=== PATIENT | female | born 2000 | race Caucasian/White ===

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

== ENCOUNTER 2019-05-16 22:33 | Emergency (ER) | payer SELFPAY ==
[~2019-05-16] VITALS: Ht 154.9 cm; Wt 54.9 kg
[2019-05-17 01:35] VITALS: BP 109/65
[2019-05-17] MEDS ORDERED: ALBUTEROL SULF 2.5 MG/0.5ML(0.5%) NEB SOLN NEB ONE (02:15)
[2019-05-17] MEDS ORDERED: cefTRIAXone SOD 1,000 MG VL IM ONE (02:15)
[2019-05-17] MEDS ORDERED: IPRATROPIUM BROM 0.5 MG/2.5ML INH SOL NEB ONE (02:15)
[2019-05-17] MEDS ORDERED: LIDOCAINE 1% HCL (LOCAL ANESTH.) INJ 20ML MDV ID ONE (02:15)
== END 2019-05-17 03:08 | disposition home or self-care (01) ==
LOC: EDBD 22:33 → ER 22:37
DX: J45.901 Unspecified asthma with (acute) exacerbation (principal); H65.03 Acute serous otitis media, bilateral; B35.4 Tinea corporis; J01.90 Acute sinusitis, unspecified; F17.210 Nicotine dependence, cigarettes, uncomplicated; Z90.89 Acquired absence of other organs; Z88.6 Allergy status to analgesic agent; Z88.8 Allergy status to other drugs, medicaments and biological substances
CPT/HCPCS: 94640; 96372; 99283; J0696; J2001; J7611; J7644

== ENCOUNTER 2019-05-19 11:21 | Emergency (ER) | payer SELFPAY ==
[~2019-05-19] VITALS: Ht 154.9 cm; Wt 50.8 kg
[2019-05-19 12:33] VITALS: BP 131/82
[2019-05-19] MEDS ORDERED: ACETAMINOPHEN 500 MG TAB PO ONE (12:45)
== END 2019-05-19 13:17 | disposition home or self-care (01) ==
LOC: EDBD 11:21 → ER 11:21
DX: S83.91XA Sprain of unspecified site of right knee, initial encounter (principal); S00.93XA Contusion of unspecified part of head, initial encounter; F12.10 Cannabis abuse, uncomplicated; Z88.8 Allergy status to other drugs, medicaments and biological substances; Y08.89XA Assault by other specified means, initial encounter; Y93.89 Activity, other specified; Y99.8 Other external cause status; Y92.89 Other specified places as the place of occurrence of the external cause
CPT/HCPCS: 29505